=== PATIENT | male | born 1975 | race Caucasian/White ===

== ENCOUNTER 2017-01-18 12:45 | Day surgery (SDC) | payer OTHER ==
[~2017-01-18] VITALS: Ht 170.2 cm; Wt 64.8 kg
[~2017-01-18 12:45] MED LIST: BUPIVACAINE/PF 0.5% ONE; HYDR-3237 PO
[2017-01-18] MEDS ORDERED: LACTATED RINGERS 1,000 ML IV SCH ×2 (13:15→19:00)
[2017-01-18 13:19] VITALS: BP 113/57
[2017-01-18] MEDS ORDERED: MIDAZOLAM 1 MG/ML, 2ML ONE (14:34)
[2017-01-18] MEDS ORDERED: FENTANYL PF 100 MCG/2ML ONE ×4 (14:35→16:39)
[2017-01-18] MEDS ORDERED: CEFAZOLIN 1,000 MG ONE (14:57)
[2017-01-18] MEDS ORDERED: NEOSTIGMINE 1 MG/ML, 10ML ONE (14:57)
[2017-01-18] MEDS ORDERED: PROPOFOL 10 MG/ML, 20ML ONE (14:57)
[2017-01-18] MEDS ORDERED: ROCURONIUM 10 MG/ML ONE ×3 (14:57)
[2017-01-18] MEDS ORDERED: DEXAMETHASONE 4 MG/ML, 1ML ONE (14:57)
[2017-01-18] MEDS ORDERED: ONDANSETRON 2MG/ML, 2ML ONE ×2 (14:57→17:14)
[2017-01-18] MEDS ORDERED: GLYCOPYRROLATE 0.2MG/1ML ONE (14:57)
[2017-01-18] MEDS ORDERED: SUCCINYLCHOLINE 20 MG/ML, 10ML ONE (14:57)
[2017-01-18] MEDS ORDERED: BUPIVACAINE/PF-EPI 0.5% 1:200K IM ONE (15:09)
[2017-01-18] MEDS ORDERED: METOPROLOL 1 MG/ML, 5ML IV PRN (15:30)
[2017-01-18] MEDS ORDERED: ONDANSETRON 2MG/ML, 2ML IVPush PRN ×2 (15:30→18:30)
[2017-01-18] MEDS ORDERED: ALBUTEROL SULFATE 2.5 MG/3 ML NPPB PRN (15:30)
[2017-01-18] MEDS ORDERED: PROMETHAZINE 25 MG/ML, 1ML IV PRN (15:30)
[2017-01-18] MEDS ORDERED: ACETAMINOPHEN 325 MG TABLET PO PRN (15:30)
[2017-01-18] MEDS ORDERED: OXYcodone 5 MG/5 ML ORAL.SOL UDC PO PRN (15:30)
[2017-01-18] MEDS ORDERED: LABETALOL 5MG/ML, 20ML IV PRN (15:30)
[2017-01-18] MEDS ORDERED: hydrALAzine 20 MG/ML, 1ML IV PRN (15:30)
[2017-01-18] MEDS ORDERED: HYDROcodone/APAP 7.5-325MG/15ML UDC PO PRN (15:30)
[2017-01-18] MEDS ORDERED: MIDAZOLAM 1 MG/ML, 2ML IV PRN (15:30)
[2017-01-18] MEDS ORDERED: EPHEDRINE 50 MG/ML, 1ML IVPush PRN (15:30)
[2017-01-18] MEDS ORDERED: MEPERIDINE/PF 25MG/0.5ML IVPush PRN (15:30)
[2017-01-18] MEDS ORDERED: HYDROmorphone 1 MG/ML, 1ML ONE ×2 (16:08→16:53)
[2017-01-18] MEDS ORDERED: OXYcodone 5 MG/5 ML ORAL.SOL UDC ONE (16:09)
[2017-01-18] MEDS: HYDROmorphone 1 MG/ML, 1ML IV PRN ×4 (16:12→17:03)
[2017-01-18] MEDS: FENTANYL PF 100 MCG/2ML IV PRN ×4 (16:12→16:49)
[2017-01-18] MEDS ORDERED: PROMETHAZINE 25 MG/ML, 1ML ONE (16:39)
[2017-01-18] MEDS ORDERED: MEPERIDINE/PF 25MG/0.5ML ONE (17:06)
[2017-01-18] MEDS ORDERED: OXYcodone/APAP 5/325MG TABLET PO PRN (18:30)
[2017-01-18] MEDS ORDERED: MORPHINE SULFATE 4 MG/ML, 1ML IVPush PRN (19:00)
[2017-01-18 21:01] VITALS: BP 136/87
[2017-01-18 22:00] VITALS: BP 127/80
== END 2017-01-18 22:36 | disposition home or self-care (01) ==
LOC: OUT 12:45 → 4NOR 17:58 → OUT 22:36
PROVIDERS: ATTEND Surgery
DX: K40.90 Unilateral inguinal hernia, without obstruction or gangrene, not specified as recurrent (principal); Z88.0 Allergy status to penicillin; Z87.891 Personal history of nicotine dependence; Z87.19 Personal history of other diseases of the digestive system
CPT/HCPCS: 49650; C1781; J0330; J0690; J1100; J1170; J2175; J2250; J2405; J2550; J2704; J2710; J3010; J3490; J7120

== ENCOUNTER → 2017-06-05 | Outpatient (CLI) | payer OTHER ==
[~2017-06-05] MED LIST changes: -BUPIVACAINE/PF 0.5% ONE
[2017-06-05 12:55] LABS: CHLORIDE 107 mmol/L (98-107)
[2017-06-05 13:01] LABS: HEMOGLOBIN A1C 5.6 % (4.2-6.3)
[2017-06-05 13:40] LABS: BASOPHILS # (AUTO) 0.04 x10^3/uL (0-0.1); BASOPHILS % (AUTO) 1 % (0-1); EOSINOPHILS # (AUTO) 0.11 x10^3/uL (0-0.4); EOSINOPHILS % (AUTO) 2 % (1-7); LYMPHOCYTES # (AUTO) 1.71 x10^3/uL (1-3.4); LYMPHOCYTES % (AUTO) 28 % (22-44); MD NO; MEAN CORPUSCULAR HGB CONC 33.8 g/dL (33.2-36.2); MEAN CORPUSCULAR VOLUME 91.8 fL (81-97); MEAN PLATELET VOLUME 8.9 fL (7.4-10.4); MONOCYTES # (AUTO) 0.47 x10^3/uL (0.2-0.8); MONOCYTES % (AUTO) 8 % (2-9); NEUTROPHILS # (AUTO) 3.74 x10^3/uL (1.8-6.8); NEUTROPHILS % (AUTO) 62 % (42-75); PLATELET COUNT 240 x10^3/uL (130-400); RED BLOOD COUNT 4.75 x10^6/uL (4.38-5.82); RED CELL DISTRIBUTION WIDTH 13.5 % (9.4-14.8)
[2017-06-05 14:00] LABS: ALANINE AMINOTRANSFERASE 17 U/L (12-78); ALBUMIN 4.1 g/dL (3.4-5.0); ALKALINE PHOSPHATASE 84 U/L (45-117); BILIRUBIN,TOTAL 0.6 mg/dL (0.2-1.0); CALCIUM 8.6 mg/dL (8.5-10.1); CREATININE 0.77 mg/dL (0.7-1.3); TOTAL PROTEIN 7.4 g/dL (6.4-8.2)
[2017-06-05 14:12] LABS: ANION GAP 8 mmol/L (5-15)
== END | disposition home or self-care (01) ==
LOC: CFH 08:33
PROVIDERS: ATTEND Registered Nurse
DX: R30.0 Dysuria (principal); R53.83 Other fatigue; R80.9 Proteinuria, unspecified; R83 Abnormal findings in cerebrospinal fluid; Z83.3 Family history of diabetes mellitus
CPT/HCPCS: 36415; 80053; 82043; 82570; 83036; 85025